=== PATIENT | male | born 2000 | race Two or more races ===

== ENCOUNTER 2023-10-13 17:45 | Emergency (ER) | payer OTHER ==
[~2023-10-13] VITALS: Ht 165.1 cm; Wt 72.7 kg
[2023-10-13 17:47] VITALS: TEMP 98.5
[2023-10-13] MEDS: LORazepam 1 MG TABLET PO ONE (19:40)
[2023-10-13] MEDS: ONDANSETRON HCL 4 MG TABLET PO ONE (19:41)
[2023-10-13 20:52] VITALS: BP 108/70; PULSE 64; RESP 18; O2SAT 98
== END 2023-10-13 20:53 | disposition home or self-care (01) ==
LOC: EMS 17:45
DX: F11.23 Opioid dependence with withdrawal (principal); F17.210 Nicotine dependence, cigarettes, uncomplicated
CPT/HCPCS: 99283; Q0162

== ENCOUNTER → 2023-10-13 | Emergency (ER) | payer OTHER ==
[~2023-10-13] VITALS: Ht 165.1 cm; Wt 72.7 kg
[2023-10-13 16:13] VITALS: BP 127/78; PULSE 74; RESP 18; TEMP 98.6; O2SAT 98
== END | disposition still patient (30) ==
LOC: EMS 16:07
DX: K08.89 Other specified disorders of teeth and supporting structures (principal); Z53.21 Procedure and treatment not carried out due to patient leaving prior to being seen by health care provider